=== PATIENT | male | born 1985 | race Caucasian/White ===

== ENCOUNTER 2023-04-21 07:42 | Emergency (ER) | payer OTHER ==
[2023-04-21] MEDS: Ondansetron 4 MG/2 ML SDV IVPUSH ONE (07:51)
[2023-04-21] MEDS: Sodium Chloride 0.9% 1,000 ML IV ONE ×2 (07:54→09:00)
[2023-04-21] MEDS: HYDROmorphone 1 MG/ML Syringe IVPUSH ONE ×2 (07:54→08:50)
[2023-04-21] MEDS ORDERED: Sodium Chloride 0.9% 10 ML Syringe FLUSH PRN (08:00)
[2023-04-21 08:08] LABS: BASOPHILS ABSOLUTE AUTO 0.02 10^3/uL (0.00-0.10); BASOPHILS PERCENT AUTO 0.4 % (0.0-1.0); EOSINOPHILS ABSOLUTE AUTO 0.13 10^3/uL (0.10-0.30); EOSINOPHILS PERCENT AUTO 2.5 % (1.0-3.0); HEMATOCRIT 41.6 % (40.0-52.0); IMMATURE GRAN ABSOLUTE AUTO 0.01 10^3/uL (0.00-0.50); IMMATURE GRAN PERCENT AUTO 0.2 % (0.0-5.0); LYMPHOCYTES ABSOLUTE AUTO 1.61 10^3/uL (1.00-4.00); LYMPHOCYTES PERCENT AUTO 30.4 % (20.0-40.0); MEAN CORPUSCULAR HEMOGLOBIN 28.3 pg (27.0-31.0); MEAN CORPUSCULAR HGB CONC 33.7 g/dL (32.0-36.0); MEAN PLATELET VOLUME 9.5 fL (7.4-10.4); MONOCYTES ABSOLUTE AUTO 0.43 10^3/uL (0.10-0.80); MONOCYTES PERCENT AUTO 8.1 % (2.0-8.0); NEUTROPHILS PERCENT AUTO 58.4 % (50.0-70.0); PLATELET COUNT,PLT 186 10^3/uL (150-400); RED BLOOD CELL COUNT 4.95 10^6/uL (4.50-6.00); RED CELL DISTRIBUTION WIDTH 12.3 % (11.5-14.5)
[2023-04-21 08:23] LABS: ALANINE AMINOTRANSFERASE,ALT 36 U/L (14-63); ALKALINE PHOSPHATASE 68 U/L (46-116); ANION GAP 16.6 mmol/L (5-15); ASPARTATE AMNIOTRANSFERASE,AST 28 U/L (15-37); BILIRUBIN TOTAL 2.3 mg/dL (0.2-1.0); BLOOD UREA NITROGEN,BUN 18 mg/dL (7-18); CALCIUM 8.8 mg/dL (8.7-10.3); CARBON DIOXIDE,CO2 25.8 mmol/L (21.0-32.0); CHLORIDE,CL 103 mmol/L (98-107); CREATININE 1.16 mg/dL (0.51-1.17); GLUCOSE RANDOM 128 mg/dL (70-140); POTASSIUM,K 3.4 mmol/L (3.5-5.1); PROTEIN TOTAL,TP 6.5 g/dL (6.4-8.2); SODIUM,NA 142 mmol/L (136-145)
[2023-04-21 08:39] LABS: ESTIMATED GFR 83 mL/min (>=60)
[2023-04-21 08:47] VITALS: BP 118/59; PULSE 51
[2023-04-21] MEDS: Sodium Chloride 0.9% 1,000 ML ONE (08:49)
[2023-04-21] MEDS: HYDROmorphone 1 MG/ML Syringe ONE (08:49)
[2023-04-21] MEDS: Ondansetron 4 MG/2 ML SDV ONE (08:50)
[2023-04-21] MEDS: Tamsulosin 0.4 MG Cap.ER PO ONE (09:31)
[2023-04-21] MEDS: Ketorolac 30 MG/ML SDV IVPUSH ONE (09:31)
== END 2023-04-21 09:55 | disposition home or self-care (01) ==
LOC: KA.ED 07:42
DX: N13.2 Hydronephrosis with renal and ureteral calculous obstruction (principal)
CPT/HCPCS: 74176; 80053; 85025; 96361; 96374; 96375; 99284; 99284-25; A9270-GY; J1170; J1885; J2405; J7030